=== PATIENT | female | born 1980 | race Caucasian/White ===

== ENCOUNTER 2016-12-08 00:11 | Emergency (ER) | payer MEDICAID, OTHER ==
[~2016-12-08] VITALS: Ht 165.1 cm; Wt 75.7 kg
[~2016-12-08 00:11] MED LIST: HYDROCODONE PO; NAPR375T OR
[2016-12-08] MEDS ORDERED: SOMA350T PO (00:31)
[2016-12-08] MEDS ORDERED: NORC7.5T PO (00:31)
[2016-12-08] MEDS ORDERED: ALPR1TAB3 (00:31)
[2016-12-08] MEDS ORDERED: PHEN60TA9 PO (02:04)
[2016-12-08 02:14] VITALS: BP 101/67
== END 2016-12-08 02:15 | disposition home or self-care (01) ==
LOC: M ED 02:05
DX: F11.20 Opioid dependence, uncomplicated (principal); Z79.01 Long term (current) use of anticoagulants; Z79.899 Other long term (current) drug therapy; Z88.5 Allergy status to narcotic agent; F17.210 Nicotine dependence, cigarettes, uncomplicated

== ENCOUNTER 2017-01-01 21:10 | Emergency (ER) | payer OTHER ==
[~2017-01-01] VITALS: Ht 167.6 cm; Wt 73.5 kg
[~2017-01-01 21:10] MED LIST changes: +ALPR1TAB3; +NORC7.5T PO; +PHEN60TA9 PO; +SOMA350T PO
[2017-01-02 01:02] VITALS: BP 108/62
[2017-01-02 01:17] LABS: CONTROL LINE UCG INT CTR LINE PRESENT
--- NOTE | 2017-01-02 01:30 | REPUSA ---
CLINICAL HISTORY: Head trauma. TECHNIQUE: Multiple axial brain CT scan sections were obtained from base to vertex without contrast a dministration. COMMENTS: There is no evidence of skull fracture. The study shows normal configuration of sella turcica. There are no intra or extra-axial collections. There is no mass effect or midline shift. There is no evidence of hematoma formation. No hydrocephal us is present. No abnormal calcifications are noted. No significant abnormalities are seen either in the posterior fossa or supratentorial compartment. Moderate chronic mucosal inflammatory changes of the ethmoid air cells. The remaining sinuses and mastoid air cells are patent. IMPRESSION: Chronic mucosal inflammatory changes of the ethmoid air cells. No evidence of acute intracranial pathology. No intracranial hemorrhage or skull fracture. Thank you for your kind referral of this patient.
--- NOTE | 2017-01-02 01:31 | REPUSA ---
HISTORY: Trauma. COMPARISON: Not provided. TECHNIQUE: Multiple thin section helically-acquired axially-displayed and helically acquired coronall y displayed computed tomographic images of the face are obtained from the mandible through the fronta l sinuses, with images obtained at soft tissue and bone window. 2D reformatted images were performed. FINDINGS: Normal bony mineralization. No fractures. Normal orbits. Chronic mucosal inflammatory changes of the left maxillary sinus and ethmoid air cells. Normal oral and nasal cavities. Normal infratemporal fossa and deep parapharyngeal spaces with normal muscles of mastication. Normal parotid and submandibular glands. IMPRESSION: Chronic sinusitis. No acute fracture. Thank you for your kind referral of this patient
--- NOTE | 2017-01-02 01:40 | REPUSA ---
CLINICAL HISTORY: Neck pain. TECHNIQUE: Multiple axial images were obtained through the cervical spine. Images were also reconstru cted in coronal and sagittal planes. The study was performed without IV contrast. COMMENTS: There is no fracture or spondylolisthesis visualized. The paraspinal soft tissues are unremarkable. T here are no lytic or blastic lesions. Straightening of cervical lordosis is seen, suggesting muscular spasm. No significant disk herniation is noted at any level. Canal and foramina remain patent. IMPRESSION: 1. No fracture or spondylolisthesis. 2. Straightening of cervical lordosis is seen, suggesting muscular spasm. Thank you for your kind referral of this patient.
--- NOTE | 2017-01-02 03:17 | REP ---
Clinical: Chest pain . Comparison: 08/12/2010. Findings: The mediastinum and cardiac silhouette are stable and within normal limits for portable technique. The lung [place] are clear without acute consolidation, effusion, or pneumothorax. Skeletal structures are intact. Impression: Normal portable chest x-ray Signed by Speedy Bradley MD 01/02/2017 03:08 A
--- NOTE | 2017-01-02 09:14 | REP ---
LEFT HIP, TWO VIEWS: There is no evidence of an acute fracture, dislocation or intrinsic bone disease. IMPRESSION: No fracture or dislocation. Signed by Duane Rutherford MD 01/02/2017 05:40 P
== END 2017-01-02 03:40 | disposition home or self-care (01) ==
LOC: M ED 23:16
DX: T76.11XA Adult physical abuse, suspected, initial encounter (principal); Y04.0XXA Assault by unarmed brawl or fight, initial encounter; Y99.8 Other external cause status; M41.9 Scoliosis, unspecified; F19.20 Other psychoactive substance dependence, uncomplicated; F17.210 Nicotine dependence, cigarettes, uncomplicated

== ENCOUNTER 2017-01-21 15:27 | Emergency (ER) | payer OTHER ==
[~2017-01-21] VITALS: Ht 167.6 cm; Wt 72.6 kg
[2017-01-21 17:30] VITALS: BP 126/74
[2017-01-21] MEDS ORDERED: cloNIDine HCL 0.1 MG/24 HR PATCH TOP ONE (17:30)
[2017-01-21 18:24] VITALS: BP 124/76
== END 2017-01-21 18:26 | disposition home or self-care (01) ==
LOC: M ED 16:00
DX: O99.321 Drug use complicating pregnancy, first trimester (principal); F11.10 Opioid abuse, uncomplicated; O99.331 Smoking (tobacco) complicating pregnancy, first trimester; F17.210 Nicotine dependence, cigarettes, uncomplicated; Z3A.08 8 weeks gestation of pregnancy

== ENCOUNTER 2017-02-06 15:05 | Inpatient (IN) | payer OTHER ==
[~2017-02-06] VITALS: Ht 167.6 cm; Wt 73.7 kg
[2017-02-06] MEDS ORDERED: CARI350T20 PO (15:11)
[2017-02-06] MEDS ORDERED: HYDR-3716 PO (15:11)
[2017-02-06] MEDS ORDERED: ALPR2TAB3 PO (15:11)
[2017-02-06 15:57] LABS: MEAN CORPUSCULAR HEMOGLOBIN 32.2 pg (27.0-33.0); RED CELL DISTRIBUTION WIDTH 13.7 % (11.5-14.5); WHITE BLOOD COUNT 5.2 K/mm3 (4.0-10.0)
[2017-02-06 16:14] LABS: ALBUMIN 3.4 GM/DL (3.2-5.2); ALBUMIN/GLOBULIN RATIO 0.94 (1.00-1.93); ALKALINE PHOSPHATASE 74 U/L (45-117); ALT/SGPT 15 U/L (12-78); ANION GAP 5 MEQ/L (8-16); AST/SGOT 16 U/L (15-37); BILIRUBIN,DIRECT < 0.1 MG/DL (0.0-0.2); BILIRUBIN,TOTAL 0.3 MG/DL (0.2-1.0); BLOOD UREA NITROGEN 12 MG/DL (7-18); CALCIUM LEVEL 8.7 MG/DL (8.5-10.1); CARBON DIOXIDE LEVEL 28 MEQ/L (21-32); CHLORIDE LEVEL 107 MEQ/L (98-107); CREATININE FOR GFR 0.69 MG/DL (0.55-1.02); GLOMERULAR FILTRATION RATE > 60.0 (>60); GLUCOSE, FASTING 84 MG/DL (70-105); POTASSIUM SERUM 3.9 MEQ/L (3.5-5.1); SODIUM LEVEL 140 MEQ/L (136-145)
[2017-02-06 16:42] LABS: METHADONE URINE NEGATIVE (NEGATIVE)
[2017-02-06 16:57] LABS: CONTROL LINE HCG INT CTR LINE PRESENT
[2017-02-06] MEDS ORDERED: LORazepam 0.5 MG TAB PO STA (20:46)
[2017-02-07] MEDS ORDERED: hydrOXYzine 50 MG TAB PO STA (06:18)
[2017-02-07] MEDS ORDERED: ONDANSETRON 4 MG ORAL DISINTEGRATING TAB (S0181) PO ONE (06:30)
[2017-02-07] MEDS ORDERED: CARISOPRODOL 350 MG TAB PO ONE (09:45)
[2017-02-07] MEDS ORDERED: ALPRAZolam 0.25 MG TAB PO ONE (09:45)
[2017-02-07] MEDS ORDERED: ALPR2TAB3 PO (09:50)
[2017-02-07] MEDS ORDERED: HYDR-3716 PO (09:50)
[2017-02-07] MEDS ORDERED: SOMA350T PO (09:50)
[2017-02-07] MEDS ORDERED: MAALOX 30 ML SUSP *UDC PO PRN (13:00)
[2017-02-07] MEDS ORDERED: MOM 30ML SUSPENSION UDC PO PRN (13:00)
[2017-02-07 14:07] VITALS: BP 81/60
[2017-02-07] MEDS: hydrOXYzine 10 MG TAB PO PRN (15:56)
[2017-02-07] MEDS: ESCITALOPRAM OXALATE 10 MG TAB (LEXAPRO) PO SCH (15:56)
[2017-02-07] MEDS: QUEtiapine FUMARATE 50 MG TAB PO SCH ×2 (15:57→20:13)
[2017-02-07] MEDS: cloNIDine 0.1 MG TAB PO SCH (15:57)
[2017-02-07] MEDS: METHADONE 10 MG TAB (S0109) PO SCH (20:15)
[2017-02-07] MEDS ORDERED: METHADONE 10 MG TAB (S0109) PO SCH (21:00)
[2017-02-08 06:11] VITALS: BP 103/61
[2017-02-08] MEDS: hydrOXYzine 10 MG TAB PO PRN ×2 (08:04→17:10)
[2017-02-08] MEDS: METHADONE 10 MG TAB (S0109) PO SCH (08:04)
[2017-02-08] MEDS: ESCITALOPRAM OXALATE 10 MG TAB (LEXAPRO) PO SCH (08:04)
[2017-02-08] MEDS: QUEtiapine FUMARATE 50 MG TAB PO SCH ×2 (08:04→21:25)
[2017-02-08 08:05] VITALS: BP 117/81
[2017-02-08] MEDS: cloNIDine 0.1 MG TAB PO SCH (08:05)
--- NOTE | 2017-02-08 09:11 | HPEPDOC ---
Medical History and Physical Date of Admission Feb 07, 2017 at 13:06 History and Physical PCP: Dr Malik ATTENDING: Dr. Hero Chan HPI: 36yoF admitted to [facility] for unspecified depressive disorder, being medically examined today. Patient states she has chronic low back pain. She also complains of pain in the left ankle. She states she twisted her ankle while walking. Denies any fevers, chills, weakness, fatigue, GONZALEZ, CP, SOB, cough , palpitations, abdominal pain, N/V/D or changes in bowel or bladder habits. PMHx: Chronic low back pain Anxiety Substance use CT C spine 01/02/17 .No fracture or spondylolisthesis. Straightening of cervical lordosis is seen, suggesting muscular spasm. MRI LS spine 02/12. Diffuse disc bulge L4-5. PSHX: Denies SOCHX: Resides in: [facility] Marital Status: Single Kids: 1 Employment: Home health aide Tobacco use: 6 per day ETOH: Denies Illicit Drugs: Heroin for the past 6 months 4-5 bags per day. Cocaine in the past. IV Drug Use: Heroin Tattoos done unprofessionally: Denies FAMHX: Mother: Alive, well Father: , hepatitis C, substance use. Siblings: One brother, 2 sisters Alive, history of substance use. Children: Alive, well Unexpected deaths due to medical reasons: None. ROS: As noted in HPI, otherwise 11pt ROS of systems reviewed and remarkable only for LMP 02/02/17 PE: GEN: 36 yo F, appears stated age. Well-nourished, well developed. No acute distress. Alert and oriented x 3. Agitated throughout exam. HEENT: Normocephalic, atraumatic. Pupils are equal, round, and reactive to light. Extraocular movements are intact. No nystagmus appreciated. Sclera are nonicteric. Conjunctiva without injection. Nose midline. Nasal turbinates without bogginess. EACs both patent BL. TMs both visualized and aponte with good cone of light, no bulging or erythema. No facial asymmetry. Moist mucous membranes. Dentition fair. Pharynx pink and moist, no cobblestoning. Neck supple , trachea midline. No lymphadenopathy or thyromegaly appreciated. CHEST: Regular rate and rhythm, +S1, +S2 LUNGS: Clear to auscultation bilaterally. No wheezes, rales, or rhonchi. Breathing appears symmetric and easy. Patient is speaking in full sentences. No accessory muscle use. ABD: Round, soft, non-tender, non-distended. +Bowel sounds throughout. No rebound or guarding. No costovertebral angle tenderness. EXT: Pulses 2+ bilaterally dorsalis pedis and radial. No lower extremity edema appreciated. SKIN: [place], dry, warm. Capillary refill <2sec. No rashes. Injection sites noted right antecubital area. No erythema. NEURO: Alert and oriented x 3. Cranial nerves III-XII are intact. No focal deficits appreciated. Ecchymosis and mild edema noted around the left ankle. EKG: Pending. A&P: 36yoF admitted to [facility] for unspecified depressive disorder, 1. Psych. Plan per Psychiatry. Obtain baseline EKG to assure the safety of psychiatric medications as they can prolong the QT interval. 2. Nicotine dependence. Patch available. 3. Chronic low back pain. Patient reports home meds list includes hydrocodone 7.5/325 3 times a day and Soma 4 times a day as needed. ISTOP is accessed Reference # [id number]. Soma #120 dispensed 02/01/17. Hydrocodone 7.5/325 #90 dispensed 02/01/17. Will request Pain Management opinion. Pt is currently recieving Methadone 20mg BID. 4. Left ankle injury/pain. Patient states she was seen by her PCP and advised she had a sprain injury. Will check x-ray of left ankle. Apply Aircast. 5. Follow up with PCP on discharge. 6. Substance use. Per psychiatry. 7. IVDU. Pt adamantly declines HIV/Hepatitis screening. 8. Staff member Sravani MEDRANO present throughout exam. Vital Signs Vital Signs Date Time Temp Pulse Resp B/P (MAP) Pulse Ox O2 Delivery O2 Flow Rate FiO2 02/08/17 08:05 117/81 02/08/17 08:04 16 02/08/17 06:11 97.7 78 02/07/17 13:47 98 02/07/17 09:03 Room Air Laboratory Data Labs 24H Item Value Date Time White Blood Count 5.2 K/mm3 02/06/17 1528 Red Blood Count 4.32 M/mm3 02/06/17 1528 Hemoglobin 13.9 g/dl 02/06/17 1528 Hematocrit 39.8 % 02/06/17 1528 Mean Corpuscular Volume 92.0 fl 02/06/17 1528 Mean Corpuscular Hemoglobin 32.2 pg 02/06/17 1528 Mean Corpuscular Hemoglobin Concent 35.0 g/dl 02/06/17 1528 Red Cell Distribution Width 13.7 % 02/06/17 1528 Platelet Count 259 k/mm3 02/06/17 1528 Sodium Level 140 MEQ/L 02/06/17 1520 Potassium Level 3.9 MEQ/L 02/06/17 1520 Chloride Level 107 MEQ/L 02/06/17 1520 Carbon Dioxide Level 28 MEQ/L 02/06/17 1520 Anion Gap 5 MEQ/L L 02/06/17 1520 Blood Urea Nitrogen 12 MG/DL 02/06/17 1520 Creatinine 0.69 MG/DL 02/06/17 1520 Glomerular Filtration Rate > 60.0 02/06/17 1520 Fasting Glucose 84 MG/DL 02/06/17 1520 Calcium Level 8.7 MG/DL 02/06/17 1520 Total Bilirubin 0.3 MG/DL 02/06/17 1520 Direct Bilirubin < 0.1 MG/DL 02/06/17 1520 Aspartate Amino Transf (AST/SGOT) 16 U/L 02/06/17 1520 Alanine Aminotransferase (ALT/SGPT) 15 U/L 02/06/17 1520 Alkaline Phosphatase 74 U/L 02/06/17 1520 Total Protein 7.0 GM/DL 02/06/17 1520 Albumin 3.4 GM/DL 02/06/17 1520 Albumin/Globulin Ratio 0.94 L 02/06/17 1520 Thyroid Stimulating Hormone (TSH) 0.186 uIU/ML L 02/06/17 1520 Human Chorionic Gonadotropin, Qual NEGATIVE 02/06/17 1520 Salicylates Level 3.1 MG/DL L 02/06/17 1520 Urine Opiates Screen POSITIVE H 02/06/17 1614 Urine Methadone Screen NEGATIVE 02/06/17 1614 Acetaminophen Level < 2.0 UG/ML L 02/06/17 1520 Urine Barbiturates Screen NEGATIVE 02/06/17 1614 Urine Phencyclidine Screen NEGATIVE 02/06/17 1614 Urine Amphetamines Screen POSITIVE H 02/06/17 1614 Urine Benzodiazepines Screen NEGATIVE 02/06/17 1614 Urine Cocaine Metabolite Screen POSITIVE H 02/06/17 1614 Urine Cannabinoids Screen NEGATIVE 02/06/17 1614 Ethyl Alcohol Level < 0.003 % 02/06/17 1520 Home Medications Scheduled Alprazolam (Alprazolam) 2 Mg Tab, 2 MG PO BID Scheduled PRN Acetaminophen/Hydrocodone (Hydrocodone/Acetaminophen 7.5-325 mg) 1 Tab Tab, 1 TAB PO TID PRN for PAIN Carisoprodol (Soma) 350 Mg Tab, 350 MG PO QID PRN for SPASMS Allergies Coded Allergies: Tramadol (Verified Allergy, Intermediate, anxious, 12/08/16) Mary Jo Hess Feb 08, 2017 09:11
--- NOTE | 2017-02-08 11:19 | MHHPEPDOC ---
[facility] History & Physical History and Physical DATE OF ADMISSION: Feb 07, 2017 at 13:06 LEGAL STATUS AT ADMISSION: 9.39 CHIEF COMPLAINT: "I just told them what I had to say to get in here. My mom and the police said I had to tell them I was suicidal but I am not and have never been suicidal". HISTORY OF THE PRESENT ILLNESS: Patient is a 36-year-old female, who has been using heroin IV and inhaling since May 2016. She is seeking treatment for her addiction. She has been living with her mother who also cares for pts 16 yo son. Pts mother and father have a h/o drug addiction. Pts father from complications related to Hepatitis C. Pt states that "all this is about is my mom and her income tax check and now that she has it she wants me in here". This is pts first psychiatric admission. No previous substance abuse treatment. No detox or rehab. Rarely uses alcohol. Pt absconded from the unit immediately after nursing completed their admission. She was observed leaving the building and entering the parking garage where she tried to get into or break into cars so she could leave. Pt remembers doing this and has not remorse or regret. Pt does not recall hiding Seroquel in her sock last night. Pt has attended on-line courses for her BA in psychology. She hopes to continue. She presents as motivated for outpatient treatment. She feels the methadone has been a huge help to her and would like to continue treatment in the methadone program at [facility]. PSYCHIATRIC REVIEW OF SYSTEMS: Affective: attentive to questioning. Anxiety: high Trauma: denies Psychosis: none illicited Personally: cooperative PAST PSYCHIATRIC HISTORY: Prior Psychiatric Disorder: saw school counselor after a suicide by a classmate Outpatient Treatment: none Suicidal/Self injurious: none Psychotropic Medication History: none ALLERGIES: Please see below. FAMILY PSYCHIATRIC HISTORY: substance abuse by parents. No h/o mental illness or suicide in immediate or extended family SOCIAL HISTORY: Early Relations/development: reports parents were abusing drugs as she was growing up. Sibling order: oldest, 1 younger sister. Paternal relationships: mother has patients son living with her, creates consternation between pt and mother /mother will deny visitation by pt. Education: college Occupational: unemployed Legal: denies Martial: single Economic: dependent on family Supports: grandmother, sister, aunt Abuse/trauma: denies SUBSTANCE ABUSE HISTORY: heroine IV and inhalation since 05/2016 toxicology positive for opiates, stimulants and cocaine. Pt has used Suboxone before and states it made her very ill. She was not in a treatment program or supervised when she did this. PAST MEDICAL/SURGICAL HISTORY: CT C spine 01/02/17 .No fracture or spondylolisthesis. Straightening of cervical lordosis is seen, suggesting muscular spasm. MRI LS spine 02/12. Diffuse disc bulge L4-5. VITAL SIGNS: Temperature 97.7, pulse 78, respiratory rate 20, blood pressure 103 /61. MENTAL STATUS EXAMINATION: General appearance: Patient is a 36-year old female, who is lying in bed in hospital attire, unkempt, pleasant and cooperative Speech: spontaneous Thought processes: goal directed Thought content: appropriate Abstract reasoning and computation: good Description of associations: good Description of abnormal or psychotic thoughts: denies SI and HI. no psychotic symptoms observed Judgment: poor Insight: good Orientation: well oriented in all spheres. Recent and remote memory: good Attention span and concentration: adequate Fund of knowledge: full Mood: "usually good" admits to being angry toward mother who is not allowing her to see her own son. Affect: in control, congruent. DIAGNOSES: depressive disorder unspecified sedative, hypnotic and opiate dependence chronic low back pain tobacco dependent ASSESSMENT: Pt is impulsive but motivated to improve her situation in life. She is interested in outpatient treatment for her addiction and also wants to complete college. She denies anhedonia, reports good mood and that she is trying to get help, reports concentration is "average", energy is "good", sleep "good 6-8 hours" nightly, she denies nightmares, denies feeling hopeless or worthless, denies psychomotor agitation or retardation, denies SI and HI. Plan: pt on 1:1 observation after leaving the unit yesterday. this will be maintained for now. Pt is encouraged to attend programs and participate in unit milieu. PROBLEM LIST: 1. substance abuse 2. poor impulse control 3. ineffective coping INITIAL TREATMENT PLAN: 1. Patient was admitted on a 9.39 2. Complete history was obtained. 3. With patients permission, family will be contacted and database will be expanded. 4. Patients medication regimen will be reviewed and changed accordingly. 5. Patient will be provided with protected environment. 6. Patient will be treated with individual, group, and milieu therapies. 7. Patient will receive supportive psych-education. 8. Discharge planning will commence immediately. 9. Outpatient follow-up treatment will be strongly recommended. 10. The initial treatment plan will focus initially on: see above ESTIMATED LENGTH OF STAY: 7-10 DAYS. TIME SPENT COUNSELING AND COORDINATING INITIAL CARE: 50 minutes. Medications Scheduled Alprazolam (Alprazolam) 2 Mg Tab, 2 MG PO BID, (Reported) Scheduled PRN Acetaminophen/Hydrocodone (Hydrocodone/Acetaminophen 7.5-325 mg) 1 Tab Tab, 1 TAB PO TID PRN for PAIN, (Reported) Carisoprodol (Soma) 350 Mg Tab, 350 MG PO QID PRN for SPASMS, (Reported) Allergies Coded Allergies: Tramadol (Verified Allergy, Intermediate, anxious, 12/08/16) Amy Hughes Feb 08, 2017 11:19
--- NOTE | 2017-02-08 13:41 | REP ---
Left ankle series: Four views. History: Pain after injury. Comparison study April 14, 2011. Findings: Ankle mortise is intact. There is mild anterolateral soft tissue swelling. No fracture is seen. Plantar calcaneal spurring is noted. This is slightly more prominent but not new when compared to the prior study. Impression: No fracture noted. Plantar heel spur. Signed by Kt Lu MD 02/08/2017 02:06 P
[2017-02-08 18:00] VITALS: BP 90/56
[2017-02-08] MEDS ORDERED: METHADONE 10 MG TAB (S0109) PO ONE (21:00)
[2017-02-08] MEDS: ACETAMINOPHEN TAB 650MG DOSE (2X325MG) PO PRN (21:41)
[2017-02-09 06:41] VITALS: BP 104/58
[2017-02-09] MEDS: ESCITALOPRAM OXALATE 10 MG TAB (LEXAPRO) PO SCH (09:00)
[2017-02-09] MEDS: cloNIDine 0.1 MG TAB PO SCH (09:00)
[2017-02-09] MEDS: METHADONE 10 MG TAB (S0109) PO SCH (09:20)
[2017-02-09] MEDS: QUEtiapine FUMARATE 50 MG TAB PO SCH ×2 (09:22→20:28)
--- NOTE | 2017-02-09 16:48 | MHIPNPDOC ---
[facility] Progress Note Progress Note DATE OF SERVICE: 02/09/17 HISTORY: day 3 of admission, Pt admitted with SI related to heroin addiction VITAL SIGNS: See below. NEW TEST RESULTS: na CURRENT MEDICATIONS: See below. MENTAL STATUS EXAMINATION: Patient is a 37-year old female, who is in bed, wearing hospital attire, hair is uncombed, pleasant and cooperative. Speech: Is spontaneous Language skills are good Thought processes including: goal directed Thought content: wants discharge, Abstract reasoning, and computation: concrete. Description of associations: good. Description of abnormal or psychotic thoughts: none Judgment: poor Insight: fair. Orientation: oriented in all spheres Recent and remote memory: intact Attention span and concentration: adequate Fund of knowledge: full Mood: anxious. Affect: congruent DIAGNOSES: depressive disorder unspecified sedative, hypnotic and opiate dependence chronic low back pain tobacco dependent ASSESSMENT:pt is not attending groups regularly even though she is being encouraged to do so. She keeps to her own schedule and routine. Requests discharge today. States she has done well on the methadone and she is good to go. Eating and drinking well, attends to hygiene. Gets along with peers. Pt is refusing antidepressant medication due to fear of weight gain. Denies need for antidepressant. MANAGEMENT PLAN: mother has informed staff that pt cannot return to her home or the grandmother's home. Pt needs to make arrangements for housing upon discharge. She will ask her family to provide her phone so she can obtain phone numbers from it. Pt still plans/agrees to follow up with outpatient recovery services at [facility]. TIME SPENT: 15 minutes. Vital Signs Vital Signs Date Time Temp Pulse Resp B/P (MAP) Pulse Ox O2 Delivery O2 Flow Rate FiO2 02/09/17 09:20 16 02/09/17 06:41 97.9 61 104/58 (73) 02/07/17 13:47 98 02/07/17 09:03 Room Air Current Medications Current Medications Acetaminophen (Tylenol Tab) 650 mg Q6HP PRN PO HEADACHE or DISCOMFORT Last administered on 02/08/17t 21:41; Start 02/07/17 at 13:00; Stop 03/09/17 at 12:59 Al Hydrox/Mg Hydrox/Simethicone (Mylanta) 30 ml Q4HP PRN PO HEARTBURN/ INDIGESTION; Start 02/07/17 at 13:00; Stop 03/09/17 at 12:59 Clonidine HCl (Catapres) 0.1 mg DAILY PO ; Start 02/07/17 at 09:00; Stop 03/09/17 at 08:59 Escitalopram Oxalate (Lexapro) 10 mg DAILY PO Last administered on 02/08/17 08: 04; Start 02/07/17 at 09:00; Stop 03/09/17 at 08:59 Home Med (Med Rec Complete!) ASDIRECTED XX ; Start 02/07/17 at 10:00; Stop at 10:00; Status DC Hydroxyzine HCl (Atarax) 20 mg Q6HP PRN PO anxiety Last administered on 17:10; Start 02/07/17 at 13:00; Stop 03/09/17 at 12:59 Hydroxyzine HCl (Atarax) 50 mg STAT STAT PO Last administered on 02/07/17 06: 26; Start 02/07/17 at 06:18; Stop 02/07/17 at 06:19; Status DC Lorazepam (Ativan) 0.5 mg STAT STAT PO Last administered on 02/06/17 20:46; Start 02/06/17 at 20:46; Stop 02/06/17 at 20:47; Status DC Magnesium Hydroxide (Milk Of Magnesia) 30 ml DAILYPRN PRN PO CONSTIPATION; Start 02/07/17 at 13:00; Stop 03/09/17 at 12:59 Methadone HCl (Dolophine) 10 mg QAM PO Last administered on 02/09/17 09:20; Start 02/09/17 at 09:00; Stop 02/16/17 at 08:59 Methadone HCl (Dolophine) 20 mg BID PO ; Start 02/07/17 at 21:00; Stop 02/07/17 at 21:00; Status DC Methadone HCl (Dolophine) 20 mg BID PO Last administered on 02/08/17 08:04; Start 02/07/17 at 21:00; Stop 02/08/17 at 09:01; Status DC Quetiapine Fumarate (SEROquel) 50 mg BID PO Last administered on 02/09/17 09:22 ; Start 02/07/17 at 09:00; Stop 03/09/17 at 08:59 Trazodone HCl (Desyrel) 50 mg QHSP PRN PO INSOMNIA; Start 02/07/17 at 13:00; Stop 03/09/17 at 12:59 Allergies Coded Allergies: Tramadol (Verified Allergy, Intermediate, anxious, 12/08/16) Amy Hughes Feb 09, 2017 16:48
[2017-02-09] MEDS: hydrOXYzine 10 MG TAB PO PRN (18:05)
[2017-02-09 18:32] VITALS: BP 102/64
[2017-02-09] MEDS: ACETAMINOPHEN TAB 650MG DOSE (2X325MG) PO PRN (20:30)
[2017-02-09] MEDS ORDERED: METHADONE 10 MG TAB (S0109) PO ONE (21:00)
[2017-02-09] MEDS ORDERED: IBUPROFEN 400 MG TAB PO PRN (22:30)
[2017-02-10 07:19] VITALS: BP 99/54
[2017-02-10] MEDS: METHADONE 10 MG TAB (S0109) PO SCH (08:16)
[2017-02-10] MEDS: QUEtiapine FUMARATE 50 MG TAB PO SCH ×2 (08:16→20:00)
[2017-02-10] MEDS: cloNIDine 0.1 MG TAB PO SCH (08:17)
[2017-02-10] MEDS: ESCITALOPRAM OXALATE 10 MG TAB (LEXAPRO) PO SCH (08:17)
--- NOTE | 2017-02-10 15:36 | MHIPNPDOC ---
[facility] Progress Note Progress Note DATE OF SERVICE: 02/10/17 HISTORY: day 4 of admission VITAL SIGNS: See below. NEW TEST RESULTS: ankle x ray show Plantar heel spur, no fx. CURRENT MEDICATIONS: See below. MENTAL STATUS EXAMINATION: Patient is a 37-year old female, who is lying in bed having vital done, hair dis -sheveled, irritable. Speech: Is clear Language skills are good Thought processes including: goal directed Thought content: wants discharge, Abstract reasoning, and computation: concrete. Description of associations: good. Description of abnormal or psychotic thoughts: none Judgment: poor Insight: fair. Orientation: oriented in all spheres Recent and remote memory: intact Attention span and concentration: adequate Fund of knowledge: full Mood: anxious. Affect: congruent DIAGNOSES: depressive disorder unspecified sedative, hypnotic and opiate dependence chronic low back pain tobacco dependent ASSESSMENT:pt is getting irritable now that methadone taper is nearly complete. has not been able to get numbers from her phone as mother did not leave phone wiht staff. Once janey has been able to find housing and we can verify it, we can set the discharge date. Pt is in bed, not participating in milieu as asked. Eating at meals, showering. MANAGEMENT PLAN: hopefully pt can find a safe place for discharge and we can discharge her early next week. continue methadone taper, close observations ,vs and engagement in milieu. TIME SPENT: 15 minutes. Vital Signs Vital Signs Date Time Temp Pulse Resp B/P (MAP) Pulse Ox O2 Delivery O2 Flow Rate FiO2 02/10/17 08:16 16 02/10/17 07:19 97.1 58 99/54 (69) 02/07/17 13:47 98 02/07/17 09:03 Room Air Current Medications Current Medications Acetaminophen (Tylenol Tab) 650 mg Q6HP PRN PO HEADACHE or DISCOMFORT Last administered on 02/09/17t 20:30; Start 02/07/17 at 13:00; Stop 03/09/17 at 12:59 Al Hydrox/Mg Hydrox/Simethicone (Mylanta) 30 ml Q4HP PRN PO HEARTBURN/ INDIGESTION; Start 02/07/17 at 13:00; Stop 03/09/17 at 12:59 Clonidine HCl (Catapres) 0.1 mg DAILY PO ; Start 02/07/17 at 09:00; Stop 03/09/17 at 08:59 Escitalopram Oxalate (Lexapro) 10 mg DAILY PO Last administered on 02/08/17 08: 04; Start 02/07/17 at 09:00; Stop 03/09/17 at 08:59 Home Med (Med Rec Complete!) ASDIRECTED XX ; Start 02/07/17 at 10:00; Stop at 10:00; Status DC Hydroxyzine HCl (Atarax) 20 mg Q6HP PRN PO anxiety Last administered on 18:05; Start 02/07/17 at 13:00; Stop 03/09/17 at 12:59 Hydroxyzine HCl (Atarax) 50 mg STAT STAT PO Last administered on 02/07/17 06: 26; Start 02/07/17 at 06:18; Stop 02/07/17 at 06:19; Status DC Ibuprofen (Advil) 400 mg Q4HP PRN PO PAIN; Start 02/09/17 at 22:30; Stop at 22:29 Lorazepam (Ativan) 0.5 mg STAT STAT PO Last administered on 02/06/17 20:46; Start 02/06/17 at 20:46; Stop 02/06/17 at 20:47; Status DC Magnesium Hydroxide (Milk Of Magnesia) 30 ml DAILYPRN PRN PO CONSTIPATION; Start 02/07/17 at 13:00; Stop 03/09/17 at 12:59 Methadone HCl (Dolophine) 5 mg BID PO ; Start 02/10/17 at 21:00; Stop 02/11/17 at 12:00 Methadone HCl (Dolophine) 10 mg QAM PO Last administered on 02/10/17 08:16; Start 02/09/17 at 09:00; Stop 02/10/17 at 08:21; Status DC Methadone HCl (Dolophine) 20 mg BID PO ; Start 02/07/17 at 21:00; Stop 02/07/17 at 21:00; Status DC Methadone HCl (Dolophine) 20 mg BID PO Last administered on 02/08/17 08:04; Start 02/07/17 at 21:00; Stop 02/08/17 at 09:01; Status DC Quetiapine Fumarate (SEROquel) 50 mg BID PO Last administered on 6/9/17at 08:16 ; Start 02/07/17 at 09:00; Stop 03/09/17 at 08:59 Trazodone HCl (Desyrel) 50 mg QHSP PRN PO INSOMNIA; Start 02/07/17 at 13:00; Stop 03/09/17 at 12:59 Allergies Coded Allergies: Tramadol (Verified Allergy, Intermediate, anxious, 12/08/16) Amy Hughes Feb 10, 2017 15:36
[2017-02-10] MEDS: ACETAMINOPHEN TAB 650MG DOSE (2X325MG) PO PRN (15:42)
[2017-02-10] MEDS: hydrOXYzine 10 MG TAB PO PRN (15:42)
[2017-02-10 18:00] VITALS: BP 98/57
[2017-02-10] MEDS: METHADONE 5 MG TAB (S0109) PO SCH (20:01)
[2017-02-11 06:00] VITALS: BP 101/60
[2017-02-11] MEDS: ACETAMINOPHEN TAB 650MG DOSE (2X325MG) PO PRN (08:04)
[2017-02-11] MEDS: QUEtiapine FUMARATE 50 MG TAB PO SCH ×2 (08:06→20:34)
[2017-02-11] MEDS: METHADONE 5 MG TAB (S0109) PO SCH (08:06)
[2017-02-11] MEDS: ESCITALOPRAM OXALATE 10 MG TAB (LEXAPRO) PO SCH (09:00)
[2017-02-11] MEDS: cloNIDine 0.1 MG TAB PO SCH (09:00)
--- NOTE | 2017-02-11 12:45 | IPN ---
DATE: 02/11/2017 CHIEF COMPLAINT: Says feels better. SUBJECTIVE: Seen for followup, in the presence of staff. Says feels better, moods are better. Sleeps well. Appetite is improved. Says in fact she was never suicidal, and that she had said that she was in order to get in. Wishes to get to an outpatient rehabilitation facility. MENTAL STATUS EXAMINATION: A bit unkempt. She is cooperative. There is no agitation. No psychomotor retardation. She is coherent. Affect is restricted, but reactive. Denies any suicidal thoughts or intents. No homicidal ideas or intents. No evidence of any psychosis. Her cognition is grossly intact. Judgment is fair, as is insight. ASSESSMENT: Unspecified depressive disorder. Sedative hypnotic opiate use disorder. Rule out mood disorder induced by sedative hypnotic and/or acute dependence. PLAN: Continue current care as well as observations. Consider tapering and then discontinuing the methadone. Currently no withdrawal symptoms. Continue encouraging participation in activities in the unit. Consider discharge soon. VITAL SIGNS: Blood pressure 101/60. Pulse 54. Temperature 98.2.
[2017-02-11] MEDS: hydrOXYzine 10 MG TAB PO PRN ×2 (15:03→22:16)
[2017-02-11 18:00] VITALS: BP 117/66
[2017-02-11] MEDS: QUEtiapine FUMARATE 25 MG TAB PO PRN (20:34)
[2017-02-11] MEDS: traZODone 50 MG TAB PO PRN (22:14)
[2017-02-12 06:00] VITALS: BP 90/52
[2017-02-12] MEDS: QUEtiapine FUMARATE 50 MG TAB PO SCH ×2 (08:16→20:52)
[2017-02-12] MEDS: ACETAMINOPHEN TAB 650MG DOSE (2X325MG) PO PRN (08:17)
[2017-02-12] MEDS: cloNIDine 0.1 MG TAB PO SCH (08:28)
[2017-02-12] MEDS: ESCITALOPRAM OXALATE 10 MG TAB (LEXAPRO) PO SCH (08:28)
[2017-02-12] MEDS ORDERED: METHADONE 5 MG TAB (S0109) PO ONE (09:00)
[2017-02-12] MEDS: hydrOXYzine 10 MG TAB PO PRN (16:16)
[2017-02-12] MEDS: QUEtiapine FUMARATE 25 MG TAB PO PRN (16:16)
[2017-02-12 18:00] VITALS: BP 108/68
[2017-02-12] MEDS: traZODone 50 MG TAB PO PRN (20:52)
[2017-02-13 06:20] VITALS: BP 101/55
[2017-02-13] MEDS: QUEtiapine FUMARATE 50 MG TAB PO SCH (08:05)
[2017-02-13] MEDS: ESCITALOPRAM OXALATE 10 MG TAB (LEXAPRO) PO SCH (08:05)
[2017-02-13] MEDS: cloNIDine 0.1 MG TAB PO SCH (08:05)
[2017-02-13] MEDS ORDERED: HYDR10T PO (11:16)
[2017-02-13] MEDS ORDERED: QUET1TAB7 PO (11:16)
[2017-02-13] MEDS ORDERED: QUET5TAB PO (11:16)
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
--- NOTE | 2017-02-17 11:55 | ECGEPIP ---
Stationary ECG Study [facility] - ED Test Date: 2017-02-06 Pat Name: MEAGHAN OLSEN Department: Room: [place] [address] Gender: F Laborer Operator: : 1980 Requested By: Ladi Peña Order Number: [id number] Reading MD: Nate Pickens Measurements Intervals Ruby Rate: 102 P: 30 DE: 149 QRS: 23 QRSD: 79 T: 10 QT: 344 QTc: 448 Interpretive Statements SINUS TACHYCARDIA NSTTW ABNORMALITIES NO PRIORS Electronically Signed On 02-17-2017 11:54:32 EDT by Nate Pickens
== END 2017-02-13 12:00 | disposition home or self-care (01) | DRG 754 ==
LOC: EDBD 15:05 → M ED 16:33 → M ED INP 02-07 13:06 → M PSY 02-07 13:58
PROVIDERS: ADMIT Psychiatry & Neurology Psychiatry; ATTEND Psychiatry & Neurology Psychiatry
DX: F32.9 Major depressive disorder, single episode, unspecified (principal); F13.20 Sedative, hypnotic or anxiolytic dependence, uncomplicated; F17.210 Nicotine dependence, cigarettes, uncomplicated; M54.5 Low back pain; Z79.899 Other long term (current) drug therapy; Z88.5 Allergy status to narcotic agent; Z81.4 Family history of other substance abuse and dependence; Z82.8 Family history of other disabilities and chronic diseases leading to disablement, not elsewhere classified; M25.572 Pain in left ankle and joints of left foot

== ENCOUNTER → 2017-06-27 | Outpatient (CLI) | payer MEDICAID ==
[~2017-06-27] MED LIST changes: +ALPR2TAB3 PO; +CARI350T PO; +HYDR-3716 PO; +HYDR-643 PO; -NORC7.5T PO; +NORC7.5T35 PO; +QUET1TAB7 PO; +QUET5TAB PO
== END ==
LOC: M OUTALCOH 09:02
PROVIDERS: ATTEND Psychiatry & Neurology Psychiatry
DX: F11.20 Opioid dependence, uncomplicated (principal)

== ENCOUNTER → 2017-08-03 | Outpatient (RCR) | payer MEDICAID | LOC: M OUTALCOH 07-05 08:10 | PROVIDERS: ATTEND Psychiatry & Neurology Psychiatry | DX: F11.20 Opioid dependence, uncomplicated (principal) ==

== ENCOUNTER 2017-08-04 10:41 | Outpatient (RCR) | payer MEDICAID, SELFPAY | END 2017-09-03 | LOC: M OUTALCOH 08-09 08:45 | DX: F11.20 Opioid dependence, uncomplicated (principal) ==

== ENCOUNTER 2017-09-06 10:48 | Outpatient (RCR) | payer SELFPAY | END 2017-10-04 | LOC: M OUTALCOH 10:48 | DX: F11.20 Opioid dependence, uncomplicated (principal) ==

== ENCOUNTER 2017-10-10 10:00 | Outpatient (RCR) | payer SELFPAY | END 2017-11-01 | LOC: M OUTALCOH 10-11 16:00 | DX: F11.20 Opioid dependence, uncomplicated (principal) ==

== ENCOUNTER 2017-11-07 10:00 | Outpatient (RCR) | payer SELFPAY | END 2017-12-02 | LOC: M OUTALCOH 11-13 15:00 | DX: F11.20 Opioid dependence, uncomplicated (principal) ==

== ENCOUNTER 2017-12-04 10:19 | Outpatient (RCR) | payer MEDICAID, SELFPAY | END 2018-01-01 | LOC: M OUTALCOH 12-11 16:00 | DX: F11.20 Opioid dependence, uncomplicated (principal) ==

== ENCOUNTER 2018-01-08 15:53 | Outpatient (RCR) | payer MEDICAID | END 2018-02-01 | LOC: M OUTALCOH 15:53 | DX: F11.20 Opioid dependence, uncomplicated (principal) ==

== ENCOUNTER → 2018-02-07 | Outpatient (REF) | payer MEDICAID ==
[2018-02-07 19:04] LABS: FERRITIN 28 NG/ML (8-252)
[2018-02-07 19:04] LABS: IRON (FE) 71 UG/DL (50-170)
[2018-02-07 19:06] LABS: VITAMIN B12 LEVEL 355 PG/ML (247-911)
[2018-02-07 19:07] LABS: FOLATE 7.3 NG/ML (>5.4)
== END ==
LOC: M LAB REF 17:34
DX: M79.2 Neuralgia and neuritis, unspecified (principal)

== ENCOUNTER 2018-03-09 11:44 | Outpatient (RCR) | payer MEDICAID | END 2018-04-03 | LOC: M OUTALCOH 11:44 | DX: F11.20 Opioid dependence, uncomplicated (principal) ==

== ENCOUNTER 2018-06-25 11:09 | Outpatient (RCR) | payer MEDICAID | END 2018-07-04 | LOC: M OUTALCOH 11:09 | DX: F11.20 Opioid dependence, uncomplicated (principal) ==

== ENCOUNTER → 2018-08-01 | Outpatient (REF) | payer MEDICAID ==
[2018-08-01 16:46] LABS: ALBUMIN/GLOBULIN RATIO 1.29 (1.00-1.93); ALKALINE PHOSPHATASE 74 U/L (45-117); ALT/SGPT 24 U/L (12-78); ANION GAP 6 MEQ/L (8-16); AST/SGOT 17 U/L (7-37); BILIRUBIN,TOTAL 0.4 MG/DL (0.2-1.0); BLOOD UREA NITROGEN 19 MG/DL (7-18); C REACTIVE PROTEIN QUANTITATIV 0.52 MG/DL (0.00-0.30); CALCIUM LEVEL 8.8 MG/DL (8.5-10.1); CARBON DIOXIDE LEVEL 26 MEQ/L (21-32); CHLORIDE LEVEL 105 MEQ/L (98-107); CREATININE FOR GFR 0.74 MG/DL (0.55-1.30); GLOMERULAR FILTRATION RATE > 60.0 (>60); GLUCOSE, FASTING 99 MG/DL (70-100); POTASSIUM SERUM 4.1 MEQ/L (3.5-5.1); RHEUMATOID FACTOR QUANT < 10.0 IU/ML (<15.0); SODIUM LEVEL 137 MEQ/L (136-145); TOTAL PROTEIN 7.1 GM/DL (6.4-8.2)
[2018-08-01 16:54] LABS: ESTIMATED AVERAGE GLUCOSE 114 MG/DL (60-110); HEMOGLOBIN A1c 5.6 %
[2018-08-01 17:49] LABS: ERYTHROCYTE SEDIMENTATION RATE 17 mm/hr (0-20)
[2018-08-03 14:19] LABS: ANTI DOUBLE STRAND-DNA AB 1 IU/mL (0-9); ANTINUCLEAR ANTIBODIES DIRECT Negative (Negative)
== END ==
LOC: M LAB REF 15:54
DX: G89.4 Chronic pain syndrome (principal)
CPT/HCPCS: 84443

== ENCOUNTER 2018-08-15 11:08 | Outpatient (RCR) | payer MEDICAID ==
[~2018-08-15 11:08] MED LIST changes: +CARI1TAB7 PO; -CARI350T PO
== END 2018-09-03 ==
LOC: M OUTALCOH 11:08
PROVIDERS: ATTEND Psychiatry & Neurology Psychiatry
DX: F11.20 Opioid dependence, uncomplicated (principal)

== ENCOUNTER 2018-10-09 15:37 | Outpatient (RCR) | payer MEDICAID | END 2018-11-01 | LOC: M OUTALCOH 15:37 | PROVIDERS: ATTEND Psychiatry & Neurology Psychiatry | DX: F11.20 Opioid dependence, uncomplicated (principal) ==

== ENCOUNTER 2019-02-06 21:27 | Emergency (ER) | payer MEDICAID ==
[~2019-02-06] VITALS: Ht 165.1 cm; Wt 112.3 kg
[~2019-02-06 21:27] MED LIST changes: +NORC1TAB8 PO; -NORC7.5T35 PO
[2019-02-06] MEDS ORDERED: LYRI150C PO (21:32)
[2019-02-06 22:08] LABS: BASO % 0.5 % (0.0-1.0); EOS # 0.7 10^3/uL (0.0-0.50); EOS % 9.1 % (0.0-3.0); HEMATOCRIT 42.7 % (36.0-47.0); HEMOGLOBIN 14.4 g/dl (12.0-15.5); LYMPH # 2.7 10^3/uL (1.5-4.5); LYMPH % 35.8 % (24.0-44.0); MEAN CORPUSCULAR HEMOGLOBIN 31.3 pg (27.0-33.0); MEAN CORPUSCULAR HGB CONC 33.7 g/dl (32.0-36.5); MEAN CORPUSCULAR VOLUME 92.8 fl (80.0-96.0); MONO # 0.7 10^3/uL (0.0-0.8); MONO % 9.8 % (0.0-5.0); NEUTROPHILS # 3.3 10^3/uL (1.8-7.7); NEUTROPHILS % 44.5 % (36.0-66.0); PLATELET COUNT, AUTOMATED 278 10^3/uL (150-450); WHITE BLOOD COUNT 7.5 10^3/uL (4.0-10.0)
[2019-02-06 22:28] LABS: HCG, SERUM QUALITATIVE NEGATIVE (NEGATIVE)
[2019-02-06 22:41] LABS: ALBUMIN 3.6 GM/DL (3.2-5.2); ALT/SGPT 18 U/L (12-78); BILIRUBIN,DIRECT < 0.1 MG/DL (0.0-0.2); BILIRUBIN,TOTAL 0.2 MG/DL (0.2-1.0); BLOOD UREA NITROGEN 11 MG/DL (7-18); CALCIUM LEVEL 8.6 MG/DL (8.5-10.1); CARBON DIOXIDE LEVEL 29 MEQ/L (21-32); CHLORIDE LEVEL 106 MEQ/L (98-107); CPK CREATINE PHOSPHOKINASE 90 U/L (26-192); CREATININE FOR GFR 0.63 MG/DL (0.55-1.30); GLOMERULAR FILTRATION RATE > 60.0 (>60); GLUCOSE, FASTING 80 MG/DL (70-100); LIPASE 205 U/L (73-393); MB/CK RELATIVE INDEX 1.44 (< OR =4); SODIUM LEVEL 140 MEQ/L (136-145); TROPONIN I < 0.02 NG/ML (< 0.10)
[2019-02-07] MEDS ORDERED: ALBUTEROL SULFATE 2.5 MG/0.5 ML INH NEB SOLN NEB ONE
--- NOTE | 2019-02-07 00:45 | REP ---
Clinical: Acute chest pain . Comparison: 01/02/2017 . Technique: PA and lateral. Findings: The mediastinum and cardiac silhouette are normal. The lung [place] are clear and without acute consolidation, effusion, or pneumothorax. The skeletal structures are intact and normal. Impression: 1. No acute cardiopulmonary process. Electronically Signed by Speedy Bradley MD 02/07/2019 12:36 A
[2019-02-07] MEDS ORDERED: VENTAER INH (00:50)
[2019-02-07] MEDS ORDERED: ALBUTEROL 90 MCG/ACT 8GM HFA INHALER INH ONE (01:00)
[2019-02-07 01:03] VITALS: BP 122/80
--- NOTE | 2019-02-09 07:50 | ECGEPIP ---
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
== END 2019-02-07 01:11 | disposition home or self-care (01) ==
LOC: M ED 21:27
DX: J06.9 Acute upper respiratory infection, unspecified (principal); J45.901 Unspecified asthma with (acute) exacerbation; F33.9 Major depressive disorder, recurrent, unspecified; F41.9 Anxiety disorder, unspecified; R51 Headache; F19.10 Other psychoactive substance abuse, uncomplicated; Z79.899 Other long term (current) drug therapy; Z88.8 Allergy status to other drugs, medicaments and biological substances; F17.210 Nicotine dependence, cigarettes, uncomplicated

== ENCOUNTER → 2019-02-23 | Outpatient (CLI) | payer MEDICAID ==
[~2019-02-23] MED LIST changes: +LYRI150C PO; +VENTAER INH
[2019-02-23 19:05] LABS: BASO % 0.4 % (0.0-1.0); EOS # 0.6 10^3/uL (0.0-0.50); EOS % 7.1 % (0.0-3.0); HEMATOCRIT 44.6 % (36.0-47.0); HEMOGLOBIN 14.6 g/dl (12.0-15.5); LYMPH # 2.7 10^3/uL (1.5-4.5); LYMPH % 30.3 % (24.0-44.0); MEAN CORPUSCULAR HGB CONC 32.7 g/dl (32.0-36.5); MEAN CORPUSCULAR VOLUME 91.8 fl (80.0-96.0); MONO # 0.6 10^3/uL (0.0-0.8); MONO % 6.3 % (0.0-5.0); NEUTROPHILS % 55.6 % (36.0-66.0); PLATELET COUNT, AUTOMATED 292 10^3/uL (150-450); RED BLOOD COUNT 4.86 10^6/uL (4.00-5.40)
[2019-02-23 19:21] LABS: ALBUMIN 3.5 GM/DL (3.2-5.2); ALT/SGPT 22 U/L (12-78); BILIRUBIN,TOTAL 0.4 MG/DL (0.2-1.0); BLOOD UREA NITROGEN 12 MG/DL (7-18); CALCIUM LEVEL 8.9 MG/DL (8.5-10.1); CARBON DIOXIDE LEVEL 30 MEQ/L (21-32); CHLORIDE LEVEL 104 MEQ/L (98-107); GLOMERULAR FILTRATION RATE > 60.0 (>60); GLUCOSE, FASTING 87 MG/DL (70-100); POTASSIUM SERUM 4.2 MEQ/L (3.5-5.1); SODIUM LEVEL 140 MEQ/L (136-145); TOTAL PROTEIN 7.3 GM/DL (6.4-8.2)
== END ==
LOC: M WUC 14:35
PROVIDERS: ATTEND Physician Assistant
DX: R11.0 Nausea (principal)

== ENCOUNTER → 2019-03-04 | Outpatient (REF) | payer MEDICAID ==
[2019-03-04 20:48] LABS: ALBUMIN 3.8 GM/DL (3.2-5.2); ALT/SGPT 20 U/L (12-78); BILIRUBIN,TOTAL 0.3 MG/DL (0.2-1.0); BLOOD UREA NITROGEN 12 MG/DL (7-18); CALCIUM LEVEL 8.6 MG/DL (8.5-10.1); CARBON DIOXIDE LEVEL 27 MEQ/L (21-32); CHLORIDE LEVEL 109 MEQ/L (98-107); CREATININE FOR GFR 0.73 MG/DL (0.55-1.30); GLOMERULAR FILTRATION RATE > 60.0 (>60); GLUCOSE, FASTING 109 MG/DL (70-100); POTASSIUM SERUM 4.6 MEQ/L (3.5-5.1); SODIUM LEVEL 144 MEQ/L (136-145); TOTAL PROTEIN 7.4 GM/DL (6.4-8.2)
[2019-03-04 20:52] LABS: HEMOGLOBIN A1c 5.6 %
== END ==
LOC: M LAB REF 16:46
PROVIDERS: ATTEND Nurse Practitioner Adult Health
DX: E66.09 Other obesity due to excess calories (principal)

== ENCOUNTER → 2019-07-22 | Outpatient (REF) | payer OTHER ==
[2019-07-22 18:30] LABS: C REACTIVE PROTEIN QUANTITATIV 0.31 MG/DL (0.00-0.30); RHEUMATOID FACTOR QUANT < 10.0 IU/ML (<15.0); TESTOSTERONE 40 NG/DL (14-76); THYROID PEROXIDASE ANTIBODY < 28.0 U/ML (<60.0)
[2019-07-26 00:07] LABS: ANTI DS-DNA AB Negative (Negative); ANTINUCLEAR ANTIBODIES DIRECT Negative (Negative); TISSUE TRANSGLUTAMINASE IgA <2 U/mL (0-3)
== END ==
LOC: M LAB REF 17:03
PROVIDERS: ATTEND Nurse Practitioner Adult Health
DX: G89.4 Chronic pain syndrome (principal)

== ENCOUNTER → 2019-09-17 | Outpatient (REF) | payer OTHER | LOC: M LAB REF 18:59 | PROVIDERS: ATTEND Dermatology | DX: L72.0 Epidermal cyst (principal) ==

== ENCOUNTER → 2019-09-25 | Outpatient (REF) | payer OTHER ==
[2019-09-27 08:09] LABS: CREATININE, URINE 137.4 mg/dL (20.0-300.0)
== END ==
LOC: M LAB REF 16:42
PROVIDERS: ATTEND Nurse Practitioner Adult Health
DX: F11.11 Opioid abuse, in remission (principal)

== ENCOUNTER → 2019-11-05 | Outpatient (CLI) | payer OTHER ==
[2019-11-05 16:33] LABS: BASO % 0.4 % (0.0-1.0); EOS # 0.2 10^3/uL (0.0-0.5); EOS % 2.4 % (0.0-3.0); HEMATOCRIT 43.6 % (36.0-47.0); HEMOGLOBIN 14.8 g/dl (12.0-15.5); LYMPH # 2.6 10^3/uL (1.5-5.0); LYMPH % 36.5 % (24.0-44.0); MEAN CORPUSCULAR HEMOGLOBIN 31.3 pg (27.0-33.0); MEAN CORPUSCULAR HGB CONC 33.9 g/dl (32.0-36.5); MEAN CORPUSCULAR VOLUME 92.2 fl (80.0-96.0); MONO # 0.4 10^3/uL (0.0-0.8); MONO % 5.4 % (0.0-5.0); NEUTROPHILS # 3.9 10^3/uL (1.5-8.5); PLATELET COUNT, AUTOMATED 300 10^3/uL (150-450); RED BLOOD COUNT 4.73 10^6/uL (4.00-5.40); WHITE BLOOD COUNT 7.1 10^3/uL (4.0-10.0)
[2019-11-05 16:36] LABS: HEMATOCRIT 43.6 % (36.0-47.0)
[2019-11-05 16:39] LABS: ALBUMIN 3.7 GM/DL (3.2-5.2); ALT/SGPT 15 U/L (12-78); BILIRUBIN,TOTAL 0.5 MG/DL (0.2-1.0); BLOOD UREA NITROGEN 12 MG/DL (7-18); CALCIUM LEVEL 8.6 MG/DL (8.5-10.1); CARBON DIOXIDE LEVEL 26 MEQ/L (21-32); CHLORIDE LEVEL 107 MEQ/L (98-107); CREATININE FOR GFR 0.64 MG/DL (0.55-1.30); FERRITIN 37 NG/ML (8-252); GLOMERULAR FILTRATION RATE > 60.0 (>60); GLUCOSE, FASTING 89 MG/DL (70-100); IRON (FE) 83 UG/DL (50-170); MAGNESIUM LEVEL 1.7 MG/DL (1.8-2.4); PERCENT SATURATION 27.2 % (13.2-45.0); PHOSPHORUS LEVEL 3.8 MG/DL (2.5-4.9); POTASSIUM SERUM 4.1 MEQ/L (3.5-5.1); SODIUM LEVEL 139 MEQ/L (136-145); TOTAL IRON BINDING CAPACITY 305 UG/DL (250-450); TOTAL PROTEIN 6.8 GM/DL (6.4-8.2)
[2019-11-05 16:47] LABS: TOTAL 25(OH) VITAMIN D 30.4 NG/ML (30.0-100.0); VITAMIN B12 LEVEL 514 PG/ML (247-911)
[2019-11-05 18:06] LABS: HEMOGLOBIN A1c 5.4 %
== END ==
LOC: M WUC 14:14
PROVIDERS: ATTEND Surgery
DX: K91.2 Postsurgical malabsorption, not elsewhere classified (principal); E55.9 Vitamin D deficiency, unspecified; Z98.84 Bariatric surgery status

== ENCOUNTER → 2019-11-18 | Outpatient (CLI) | payer OTHER | LOC: M OUTALCOH 08:14 | PROVIDERS: ATTEND Psychiatry & Neurology Addiction Medicine | DX: Z03.89 Encounter for observation for other suspected diseases and conditions ruled out (principal) ==

== ENCOUNTER 2019-12-02 12:59 | Outpatient (RCR) | payer OTHER | END 2019-12-03 | LOC: M OUTALCOH 12:59 | PROVIDERS: ATTEND Psychiatry & Neurology Addiction Medicine | DX: Z03.89 Encounter for observation for other suspected diseases and conditions ruled out (principal); Z72.0 Tobacco use ==

== ENCOUNTER → 2019-12-03 | Outpatient (REF) | payer OTHER | LOC: M LAB REF 10:13 | PROVIDERS: ATTEND Physician Assistant Surgical | DX: K91.89 Other postprocedural complications and disorders of digestive system (principal); R19.7 Diarrhea, unspecified ==